=== PATIENT | male | born 1960 | race Two or more races ===

== ENCOUNTER 2017-09-21 10:15 | Inpatient (IN) | payer BC ==
[~2017-09-21] VITALS: Ht 157.5 cm; Wt 61.0 kg
[~2017-09-21 10:15] MED LIST: ASPI81TA27 PO; ATOR1TAB PO; CLOP75TA28 PO; FENO1TAB42 PO; GLIP-116 PO; LOSA100T27 PO; METF-489 PO; METO25TA5 PO; PIOG15TA46 PO
[2017-09-21] MEDS ORDERED: LIDOCAINE 2%HCL (LOCAL ANESTH.) INJ 20ML MDV ONE (10:31)
[2017-09-21] MEDS ORDERED: IODIXANOL 320MG/ML 100ML BTL IV ONE (10:31)
[2017-09-21] MEDS ORDERED: MIDAZOLAM HCL 1MG/1ML-2 ML VIAL ONE (12:47)
[2017-09-21] MEDS ORDERED: SODIUM CHL 0.9% 50 ML ONE (12:47)
[2017-09-21] MEDS ORDERED: ANGIOMAX 250 MG VIAL IV ONE (12:47)
[2017-09-21] MEDS ORDERED: fentaNYL CITRATE 100 MCG/2 ML VL ONE (12:47)
[2017-09-21] MEDS ORDERED: VERAPAMIL 2.5MG/ML INJ 2ML VIAL IV ONE (12:49)
[2017-09-21] MEDS ORDERED: EPINEPHrine HCL 1 MG/10 ML SYRG ONE (13:01)
[2017-09-21] MEDS ORDERED: ASPirin 325 MG TAB ONE (13:14)
[2017-09-21] MEDS ORDERED: NITROGLYCERIN 0.4 MG SL TAB SL PRN (14:15)
[2017-09-21] MEDS ORDERED: MORPHINE SULFATE 4 MG/ML SYR/VIAL IV PRN ×2 (14:15)
[2017-09-21] MEDS ORDERED: ACETAMINOPHEN 500 MG TAB PO PRN (14:15)
[2017-09-21] MEDS ORDERED: HYDROcodone-ACET 5/325MG TAB PO PRN (14:15)
[2017-09-21 16:45] VITALS: BP 139/78
[2017-09-21] MEDS ORDERED: MORPHINE SULFATE 8mg/ml INJ SDV IV PRN ×2 (17:00→17:15)
[2017-09-21 19:54] VITALS: BP 139/78
[2017-09-21] MEDS: METOPROLOL TARTRATE 25 MG TAB PO SCH (21:32)
[2017-09-21] MEDS: SODIUM CHLOR 0.9% PF (SALINE LOCK) 10ML VIAL/SYR IV SCH (21:33)
[2017-09-21 22:00] VITALS: BP 117/69
[2017-09-21] MEDS ORDERED: ATORVASTATIN 20 MG TAB PO SCH (22:00)
[2017-09-22 05:00] VITALS: BP 113/71
[2017-09-22] MEDS: SODIUM CHLOR 0.9% PF (SALINE LOCK) 10ML VIAL/SYR IV SCH (06:38)
[2017-09-22] MEDS ORDERED: glipiZIDE 5 MG TAB PO SCH (07:00)
[2017-09-22 08:00] VITALS: BP 121/73
[2017-09-22 09:00] VITALS: BP 121/73
[2017-09-22] MEDS: METOPROLOL TARTRATE 25 MG TAB PO SCH (09:52)
[2017-09-22] MEDS ORDERED: ASPirin-EC 81 mg tab PO SCH (10:00)
[2017-09-22] MEDS ORDERED: CLOPIDOGREL BISULFATE 75 MG TAB PO SCH (10:00)
[2017-09-22] MEDS ORDERED: PIOGLITAZONE 15MG TAB PO SCH (10:00)
[2017-09-22] MEDS ORDERED: FENOFIBRATE 145MG TAB PO SCH (10:00)
[2017-09-22] MEDS ORDERED: LOSARTAN POTASSIUM 50 MG TAB PO SCH (10:00)
[2017-09-22 11:07] VITALS: BP 121/73
== END 2017-09-22 12:45 | disposition home or self-care (01) | DRG 247 ==
LOC: CATH 10:15 → EAST 10:16 → EDSTATUS 10:59 → TELE-WESTW 15:34
PROVIDERS: ADMIT Internal Medicine; ATTEND Internal Medicine
PROC: 027035Z Dilation of Coronary Artery, One Artery with Two Drug-eluting Intraluminal Devices, Percutaneous Approach (ICD-10-PCS; principal; 2017-09-21)
PROC: 4A023N7 Measurement of Cardiac Sampling and Pressure, Left Heart, Percutaneous Approach (ICD-10-PCS; 2017-09-21)
PROC: B2101ZZ Fluoroscopy of Single Coronary Artery using Low Osmolar Contrast (ICD-10-PCS; 2017-09-21)
PROC: B41D1ZZ Fluoroscopy of Aorta and Bilateral Lower Extremity Arteries using Low Osmolar Contrast (ICD-10-PCS; 2017-09-21)
DX: I21.4 Non-ST elevation (NSTEMI) myocardial infarction (principal); E11.51 Type 2 diabetes mellitus with diabetic peripheral angiopathy without gangrene; E78.5 Hyperlipidemia, unspecified; I10 Essential (primary) hypertension; I25.10 Atherosclerotic heart disease of native coronary artery without angina pectoris; I71.4 Abdominal aortic aneurysm, without rupture; Z95.5 Presence of coronary angioplasty implant and graft; Z79.899 Other long term (current) drug therapy; Z82.49 Family history of ischemic heart disease and other diseases of the circulatory system; Z84.89 Family history of other specified conditions; Z83.3 Family history of diabetes mellitus; Z80.8 Family history of malignant neoplasm of other organs or systems; Z95.828 Presence of other vascular implants and grafts
CPT/HCPCS: 82962; 92928; 93005; 93458; 99152; C1874; C1887; J2250; Q9967

== ENCOUNTER 2022-05-15 06:42 | Day surgery (SDC) | payer BC ==
[~2022-05-15] VITALS: Ht 157.5 cm; Wt 60.8 kg
[~2022-05-15 06:42] MED LIST changes: +ASPI-543 PO; -ASPI81TA27 PO; +ATOR-47 PO; -ATOR1TAB PO; +CILO50TA PO; +CIME1TAB7 PO; +FENO145T27 PO; -FENO1TAB42 PO; -GLIP-116 PO; +GLIP10TA9 PO; +LOSA-39 PO; -LOSA100T27 PO; +NITR0.4D5 TD; -PIOG15TA46 PO; +POM
[2022-05-15] MEDS ORDERED: MIDAZOLAM HCL 2MG/2ML 2ml VIAL (1mg/ml) IV ONE (07:45)
[2022-05-15] MEDS ORDERED: LIDOCAINE VISCOUS 2% 15ML UD PO ONE (07:45)
[2022-05-15] MEDS ORDERED: fentaNYL CITRATE 100 MCG/2 ML VL IV ONE (07:45)
[2022-05-15 09:15] VITALS: BP 115/66
== END 2022-05-15 10:25 | disposition home or self-care (01) ==
LOC: CATH 06:42
PROVIDERS: ATTEND Internal Medicine
DX: I35.0 Nonrheumatic aortic (valve) stenosis (principal); Z20.822 Contact with and (suspected) exposure to COVID-19
CPT/HCPCS: 93312; J2250; J3010; U0003; 99152

== ENCOUNTER 2022-05-18 05:00 | Inpatient (IN) | payer BC ==
[~2022-05-18] VITALS: Ht 157.5 cm; Wt 58.4 kg
[2022-05-18 06:38] LABS: Basophils # (auto) 0 10 ^3/uL (0-0.2); Basophils % (auto) 0.2 % (0.0-2.0); Eosinophils # (auto) 0 10 ^3/uL (0-0.8); Hematocrit 39.4 % (41.0-53.0); Hemoglobin 13.6 g/dL (13.5-17.5); Lymphocytes # (auto) 0.5 10 ^3/uL (0.4-5.4); Mean Corpuscular Hemoglobin 30.3 pg (28.0-32.0); Mean Corpuscular Hgb Conc. 34.5 g/dL (32.0-36.0); Mean Corpuscular Volume 87.8 fL (80.0-100.0); Monocytes # (auto) 0.6 10 ^3/uL (0-1.3); Monocytes % (auto) 6.5 % (0.0-12.0); Neutrophils # (auto) 8.8 10 ^3/uL (1.6-8.6); Neutrophils % (auto) 88.3 % (37.0-80.0); Red Blood Cells 4.49 10^6/uL (4.5-5.90); Red Cell Distribution Width 13.2 % (11.8-14.3)
[2022-05-18 06:58] LABS: Albumin 3.8 g/dL (3.4-5.0); Calcium 8.9 mg/dL (8.5-10.1); Potassium 3.9 mmol/L (3.5-5.1)
[2022-05-18 07:02] LABS: BUN/Creatinine Ratio 21.2; Bilirubin, Total 0.9 mg/dL (0.2-1.0); Total Protein 7.4 g/dL (6.4-8.2)
[2022-05-18] MEDS ORDERED: ONDANSETRON HCL 4 MG/2 ML VIAL IV ONE (07:15)
[2022-05-18] MEDS ORDERED: KETOROLAC TROMETH 30 MG/ML 1ML VIAL IV ONE (07:15)
[2022-05-18 12:41] LABS: Urine Bacteria NONE SEEN /hpf (None Seen); Urine Blood Negative /uL (Negative); Urine Specific Gravity 1.029 (1.001-1.035); Urine WBC <1 /hpf (0 - 3)
[2022-05-18] MEDS ORDERED: ACETAMINOPHEN 325 MG TAB PO PRN (23:15)
[2022-05-18] MEDS ORDERED: MAALOX PLUS or MAALOX 30 ML PO PRN (23:15)
[2022-05-18] MEDS ORDERED: TEMAZEPAM 15 MG CAP PO PRN (23:15)
[2022-05-18] MEDS ORDERED: DOCUSATE SOD 100 MG CAP PO PRN (23:15)
[2022-05-18] MEDS ORDERED: LORazepam 0.5 MG TAB PO PRN (23:15)
[2022-05-18] MEDS ORDERED: HYDROcodone-ACET 5/325MG TAB PO PRN (23:15)
[2022-05-18] MEDS: SODIUM CHLORIDE 0.9% 1,000 ML IV SCH (23:41)
[2022-05-18] MEDS: ACCU-CHEK COMFORT CURVE STRIP VI SCH (23:46)
[2022-05-18] MEDS: InsuLIN REG 1unit/0.01ml Soln (100units/ml) SC SCH (23:48)
[2022-05-19] MEDS: InsuLIN REG 1unit/0.01ml Soln (100units/ml) SC SCH ×3 (05:57→18:56)
[2022-05-19] MEDS: ACCU-CHEK COMFORT CURVE STRIP VI SCH ×3 (05:57→18:55)
[2022-05-19 06:50] LABS: Basophils # (auto) 0 10 ^3/uL (0-0.2); Basophils % (auto) 0.3 % (0.0-2.0); Eosinophils # (auto) 0 10 ^3/uL (0-0.8); Eosinophils % (auto) 0.7 % (0.0-7.0); Hematocrit 34.2 % (41.0-53.0); Hemoglobin 11.7 g/dL (13.5-17.5); Lymphocytes % (auto) 14.1 % (10.0-50.0); Mean Corpuscular Hemoglobin 29.7 pg (28.0-32.0); Mean Corpuscular Hgb Conc. 34.1 g/dL (32.0-36.0); Monocytes # (auto) 0.9 10 ^3/uL (0-1.3); Monocytes % (auto) 12.8 % (0.0-12.0); Neutrophils # (auto) 4.9 10 ^3/uL (1.6-8.6); Neutrophils % (auto) 72.1 % (37.0-80.0); Red Blood Cells 3.93 10^6/uL (4.5-5.90); Red Cell Distribution Width 13.1 % (11.8-14.3); White Blood Cell 6.8 10^3/uL (4.4-10.8)
[2022-05-19 07:16] LABS: BUN/Creatinine Ratio 26.7; Calcium 8.6 mg/dL (8.5-10.1); Potassium 3.9 mmol/L (3.5-5.1)
[2022-05-19] MEDS: DEXTROSE (50%) 50ML SYRG IV PRN ×2 (12:52→20:13)
[2022-05-19] MEDS: SODIUM CHLORIDE 0.9% 1,000 ML IV SCH (17:05)
[2022-05-19] MEDS: D5W 5% 1,000 ML IV SCH (20:55)
[2022-05-19] MEDS: ONDANSETRON HCL 4 MG/2 ML VIAL IV PRN (20:55)
[2022-05-19] MEDS: MORPHINE SULFATE INJ 2 MG/ml SYRG IV PRN (20:57)
[2022-05-20 01:33] VITALS: BP 141/68
[2022-05-20 04:36] VITALS: BP 129/59
[2022-05-20] MEDS: InsuLIN REG 1unit/0.01ml Soln (100units/ml) SC SCH ×4 (05:58→18:00)
[2022-05-20] MEDS: ACCU-CHEK COMFORT CURVE STRIP VI SCH ×4 (05:58→18:00)
[2022-05-20 08:50] VITALS: BP 119/61
[2022-05-20] MEDS ORDERED: GASTROGRAFIN 120 ML SOL ONE (10:50)
[2022-05-20 13:00] VITALS: BP 128/71
[2022-05-20 17:00] VITALS: BP 146/64
[2022-05-20 21:36] VITALS: BP 138/68
[2022-05-20] MEDS: D5W 5% 1,000 ML IV SCH (21:41)
[2022-05-20] MEDS: MORPHINE SULFATE INJ 2 MG/ml SYRG IV PRN (22:42)
[2022-05-21] MEDS: MORPHINE SULFATE INJ 2 MG/ml SYRG IV PRN (04:31)
[2022-05-21] MEDS: ONDANSETRON HCL 4 MG/2 ML VIAL IV PRN (04:37)
[2022-05-21 04:49] VITALS: BP 147/77
[2022-05-21] MEDS: D5W 5% 1,000 ML IV SCH ×2 (05:47→13:08)
[2022-05-21] MEDS: ACCU-CHEK COMFORT CURVE STRIP VI SCH ×4 (05:48→18:12)
[2022-05-21] MEDS: InsuLIN REG 1unit/0.01ml Soln (100units/ml) SC SCH ×4 (05:50→18:16)
[2022-05-21 08:20] VITALS: BP_SYST 128; BP_SYST 140; BP_DIAS 71; BP_DIAS 72
[2022-05-21 13:00] VITALS: BP 146/67
[2022-05-21] MEDS ORDERED: CLOP75TA28 PO (15:21)
[2022-05-21 16:42] VITALS: BP 141/66
[2022-05-21] MEDS ORDERED: CLOPIDOGREL BISULFATE 75 MG TAB PO SCH (19:15)
== END 2022-05-21 21:10 | disposition home or self-care (01) | DRG 390 ==
LOC: ER 05:00 → OVERFLOW 23:08 → WEST WING 05-19 22:46
PROVIDERS: ADMIT Hospitalist; ATTEND Family Medicine
PROC: 0D9670Z Drainage of Stomach with Drainage Device, Via Natural or Artificial Opening (ICD-10-PCS; principal; 2022-05-19)
DX: K56.609 Unspecified intestinal obstruction, unspecified as to partial versus complete obstruction (principal); I25.10 Atherosclerotic heart disease of native coronary artery without angina pectoris; K21.9 Gastro-esophageal reflux disease without esophagitis; I10 Essential (primary) hypertension; Z20.822 Contact with and (suspected) exposure to COVID-19; E78.5 Hyperlipidemia, unspecified; E11.9 Type 2 diabetes mellitus without complications; Z82.41 Family history of sudden cardiac death; Z82.49 Family history of ischemic heart disease and other diseases of the circulatory system; Z83.3 Family history of diabetes mellitus; Z98.61 Coronary angioplasty status
CPT/HCPCS: 36415; 71045; 74176; 74250; 80048; 80053; 81001; 82962; 83690; 85025; 87426; 96374; 96375; G0378; J1815; J1885; J2405